=== PATIENT | male | born 1995 | race Caucasian/White ===

== ENCOUNTER 2017-05-03 09:25 | Emergency (ER) | payer OTHER ==
[2017-05-03] MEDS ORDERED: SODIUM CHLORIDE 0.9% 1,000 ML IV ONE (09:46)
[2017-05-03 10:11] LABS: BASOPHILS % (AUTO) 0.4 %; EOSINOPHILS % (AUTO) 0.1 %; HGB - HEMOGLOBIN 15.1 g/dL (14.0-18.0); LYMPHOCYTES % (AUTO) 9.7 %; MEAN CORPUSCULAR HEMOGLOBIN 31.9 pg (27.0-31.0); MEAN CORPUSCULAR HGB CONC 35.3 g/dL (32.0-36.0); MEAN CORPUSCULAR VOLUME 90.6 fL (80.0-94.0); MEAN PLATELET VOLUME 7.2 fL (7.4-11.4); MONOCYTES # (AUTO) 0.3 10^3/uL (0.0-1.0); MONOCYTES % (AUTO) 3.1 %; NEUTROPHILS # (AUTO) 9.2 10^3/uL (1.5-6.6); NEUTROPHILS % (AUTO) 86.7 %; PLT - PLATELET COUNT 282 10^3/uL (130-450); RED BLOOD COUNT 4.73 10^6/uL (4.70-6.10); RED CELL DISTRIBUTION WIDTH 12.4 % (12.0-15.0); WHITE BLOOD COUNT 10.6 x10^3/uL (4.8-10.8)
[2017-05-03 10:22] LABS: BILIRUBIN,URINE NEGATIVE (NEGATIVE); GLUCOSE, URINE (UA) NEGATIVE (NEGATIVE); KETONES,URINE (UA) NEGATIVE (NEGATIVE); LEUKOCYTE ESTERASE, URINE NEGATIVE (NEGATIVE); NITRITE,URINE NEGATIVE (NEGATIVE); OCCULT BLOOD,URINE NEGATIVE (NEGATIVE); PROTEIN,URINE NEGATIVE (NEGATIVE); UROBILINOGEN,URINE 0.2 (NORMAL) E.U./dL (NORMAL)
[2017-05-03 10:23] LABS: ALBUMIN 4.8 g/dL (3.2-5.5); ALBUMIN/GLOBULIN RATIO 1.4 (1.0-2.2); BILIRUBIN,TOTAL 0.4 mg/dL (0.2-1.0); CALCIUM 9.6 mg/dL (8.5-10.3); CREATININE 0.9 mg/dL (0.6-1.2); TOTAL PROTEIN 8.2 g/dL (6.7-8.2)
[2017-05-03 10:34] LABS: CLARITY,URINE CLEAR (CLEAR)
[2017-05-03] MEDS ORDERED: FAMOTIDINE 20 MG TABLET PO STA (10:40)
[2017-05-03] MEDS ORDERED: LIDOCAINE VISCOUS 2% 15 ML UDC MM STA (10:40)
[2017-05-03] MEDS ORDERED: MAG HYDROX/AL HYDROX/SIMETH 30 ML UDC PO STA (10:40)
[2017-05-03] MEDS ORDERED: ONDANSETRON ODT 4 MG TABLET TL STA (10:40)
--- NOTE | 2017-05-03 10:42 | ED Physician Documentation ---
History of Present Illness - Stated complaint Stated Complaint: ABD PX - Chief complaint Chief Complaint: Abd Pain - Additonal information Additional information: hx from pt 22 male healthy no prior surgery had NVD over the weekend with upper abd discomfort got better then this AM more upper abd pain and NVD again no blood in vomit or stool no fever chills no CP no BP no travel or sick contact not sure about bad food Review of Systems Constitutional: denies: Fever, Chills Throat: denies: Sore throat Cardiac: denies: Chest pain / pressure Respiratory: denies: Dyspnea GI: reports: Abdominal Pain, Nausea, Vomiting, Diarrhea. denies: Hematemesis, Bloody / black stool Endocrine: denies: Easy bruising / bleeding Immunocompromised: denies: Immunocompromised PD PAST MEDICAL HISTORY - Past Medical History Past Medical History: No - Past Surgical History Past Surgical History: No - Present Medications Home Medications: Ambulatory Orders Medication Instructions Recorded Confirmed Ondansetron Odt [Zofran] 4 mg TL Q6H PRN #10 tablet 05/03/17 raNITIdine [Zantac] 150 mg PO BID #60 tablet 05/03/17 - Allergies Allergies/Adverse Reactions: Allergies Allergy/AdvReac Type Severity Reaction Status Date / Time No Known Drug Allergies Allergy Verified 05/03/17 09:31 - Social History Does the pt smoke?: No Smoking Status: Never smoker Does the pt drink ETOH?: No Does the pt have substance abuse?: Yes Substance Use and Type: Marijuana - Immunizations Immunizations are current?: Yes PD ED PE NORMAL - Vitals Vital signs reviewed: Yes - General General: Alert and oriented X 3 - HEENT HEENT: PERRL - Neck Neck: Supple, no meningeal sign - Cardiac Cardiac: RRR - Respiratory Respiratory: No respiratory distress, Clear bilaterally - Abdomen Abdomen: Soft, Non tender, Other (no ruq pain) - Neuro Neuro: Alert and oriented X 3 Results - Vitals Vitals: Vital Signs - 24 hr 05/03/17 05/03/17 05/03/17 09:29 10:25 11:10 Temperature 37.6 C H Heart Rate 109 H 96 84 Respiratory 16 18 18 Rate Blood Pressure 146/101 H 144/88 H O2 Saturation 99 97 99 Oxygen O2 Source Room air - Labs Labs: Laboratory Tests 05/03/17 05/03/17 05/03/17 10:03 10:03 10:18 WBC 10.6 RBC 4.73 Hgb 15.1 Hct 42.9 MCV 90.6 MCH 31.9 H MCHC 35.3 RDW 12.4 Plt Count 282 MPV 7.2 L Neut # 9.2 H Lymph # 1.0 L [place] # 0.3 Eos # 0.0 Baso # 0.0 Absolute Nucleated RBC 0.00 Nucleated RBC % 0.0 Sodium 137 Potassium 3.7 Chloride 99 L Carbon Dioxide 25 Anion Gap 13.0 BUN 12 Creatinine 0.9 Estimated GFR (MDRD) 105 Glucose 155 H Calcium 9.6 Total Bilirubin 0.4 AST 21 ALT 20 Alkaline Phosphatase 55 Total Protein 8.2 Albumin 4.8 Globulin 3.3 Albumin/Globulin Ratio 1.4 Lipase 13 L Urine Color YELLOW Urine Clarity CLEAR Urine pH 7.0 Ur Specific [place] 1.020 Urine Protein NEGATIVE Urine Glucose (UA) NEGATIVE Urine Ketones NEGATIVE Urine Occult Blood NEGATIVE Urine Nitrite NEGATIVE Urine Bilirubin NEGATIVE Urine Urobilinogen 0.2 (NORMAL) Ur Leukocyte Esterase NEGATIVE Ur Microscopic Review NOT INDICATED Urine Culture Comments NOT INDICATED PD MEDICAL DECISION MAKING - ED course ED course: seems most like gastritis after NVD all weekend little tachy better with IVF benign abd exam nl labs except midlyl elev glucose will give GI coktail pepcid heriberto and dc Departure - Departure Disposition: 01 Home, Self Care Clinical Impression: Gastritis Qualifiers: Gastritis type: unspecified gastritis Chronicity: acute Gastritis bleeding: without bleeding Qualified Code(s): K29.00 - Acute gastritis without bleeding Condition: Good Instructions: ED Gastritis Prescriptions: Ondansetron Odt [Zofran] 4 mg TL Q6H PRN #10 tablet PRN Reason: Nausea / Vomiting raNITIdine [Zantac] 150 mg PO BID #60 tablet Comments: Rest and take plenty of fluids Take the medications as prescribed for 2 weeks, then as needed. Avoid spicy food and caffeine Please follow up with your PMD to get your blood pressure rechecked when you are feeling better - it was a little bit elevated today which is not uncommon when people are sick - but need to be sure you are not developing diabetes Forms: Activity restrictions Discharge Date/Time: 05/03/17 11:14
[2017-05-03 11:11] VITALS: BP 144/88
== END 2017-05-03 11:14 | disposition home or self-care (01) ==
LOC: ED 09:25
DX: K29.00 Acute gastritis without bleeding (principal); R03.0 Elevated blood-pressure reading, without diagnosis of hypertension
CPT/HCPCS: 36415; 80053; 81003; 83690; 85025; 99283; A9270; Q0162; 81001; 87086